=== PATIENT | male | born 1950 | race American Indian/Alaskan Native ===

== ENCOUNTER 2019-05-21 10:02 | Day surgery (SDC) | payer MEDICARE ==
[~2019-05-21 10:02] MED LIST: NACL 0.9% 1000 ML 1,000 ML IV SCH
--- NOTE | 2019-05-21 11:07 | Anesthesia Day of Surgery ---
Anesthesia Day of Surgery - Day of Surgery Patient Examined: Yes Patient H&P Reviewed: Yes Patient is NPO: Yes
--- NOTE | 2019-05-21 11:12 | Anesthesia Consultation ---
Anesthesia Consult and Med Hx Date of service: 05/21/19 - Airway Anesthetic Teeth Evaluation: Caps ROM Head & Neck: Adequate Mental/Hyoid Distance: Adequate Mallampati Class: Class II Intubation Access Assessment: Good - Pre-Operative Health Status ASA Pre-Surgery Classification: ASA3 Proposed Anesthetic Plan: MAC - Cardiovascular System Hx Hypertension: Yes - Central Nervous System CVA: Yes (Aphasic, wheelchair bound, and R hemiplegia) - Gastrointestinal Hx Ulcer: Yes (PUD)
[2019-05-21] MEDS ORDERED: SUBLIMAZE ONE (11:40)
[2019-05-21] MEDS ORDERED: DIPRIVAN 10 MG/ML IV ONE (11:40)
[2019-05-21] MEDS ORDERED: WATER FOR IRRIG STERILE IR ONE (11:41)
--- NOTE | 2019-05-21 12:14 | Procedure Note ---
Date of procedure: 05/21/19 Pre-op diagnosis: Abdominal Pain/H/O Peptic Ulcer Disease/Nausea and Vomiting Post-op diagnosis: other (No Peptic Ulcer Disease now/ Mild to Moderate Erosive Esophagitis/Gastritis/Gastric Erosion/Duodenitis) Procedure: EGD with Biopsy Anesthesia: [facility] Surgeon: LUIS A GARCIA Estimated blood loss: minimal Pathology: list Specimen disposition: to lab Condition: stable Disposition: same day (Treat with PPI, and prn Zofran and avoid aspirin NSAID for 4 days; otherwise resume home medication. Follow up in 1 to 2 weeks ([phone]).)
--- NOTE | 2019-05-21 12:27 | Post Anesthesia Evaluation ---
- Post Anesthesia Evaluation Patient Participated: Yes Airway Patent: Yes Stable Respiratory Function: Yes Nausea/Vomiting: No Temp > 96.8F: Yes Pain Manageable: Yes Adequeate Hydration: Yes Anesthesia Complications: No Block Receding Appropriately: Not Applicable Patient on Ventilator: No Other Comments: h/O stroke. Aphasic. Return to baseline status
[2019-05-21 13:53] VITALS: BP 117/79
--- NOTE | 2019-05-21 17:44 | Operative Report ---
PROCEDURE: EGD with biopsy. INDICATIONS: A 69-year-old -[place] gentleman who has had a CVA and has a prior history of peptic ulcer disease. Lately, he has been having some abdominal pain with nausea and vomiting. EGD was done to assess for the problem. DESCRIPTION OF PROCEDURE: The procedure was done after getting informed consent with MAC anesthesia. Instrument was passed through the hypopharynx into the esophagus, which showed [id number] erosive esophagitis. Biopsy was done from the distal esophagus. The stomach showed antral erosion and gastritis, but no ulcers were noted either in the straight or the retroverted view. The pylorus is patent. The duodenum and the bulb showed some duodenitis. Again, there was no evidence of any duodenal ulcer and second portion appeared normal. Additional biopsy was done from the gastric antrum, gastric body and angular incisura to rule out for H. pylori and atrophic gastritis. There was minimal bleeding associated with the procedure. No complications associated with the procedure. ASSESSMENT: Abdominal pain; history of peptic ulcer disease, none now; nausea; vomiting; [id number] distal erosive esophagitis; gastritis; gastric erosion; duodenitis. PLAN: To treat the patient with PPI, have the patient avoid aspirin and aspirin-related products for the next few days. Also, treat the patient with Zofran on a p.r.n. basis for nausea, vomiting and have the patient follow up in the office in 1-2 weeks' time. If the patient is positive for H. pylori, the patient will be treated for that. Procedure was done in the GI lab with assistance of the GI lab team which included miles Bradshaw, including MIGUE Hayward with assistance of Anesthesia. JOB# [id number] SAPPHIRE/HERB LONGO
== END 2019-05-21 10:03 | disposition home or self-care (01) ==
LOC: GIO 10:02
DX: R11.2 Nausea with vomiting, unspecified (principal); R10.9 Unspecified abdominal pain; K20.9 Esophagitis, unspecified; K29.70 Gastritis, unspecified, without bleeding; I10 Essential (primary) hypertension; K29.80 Duodenitis without bleeding; K27.9 Peptic ulcer, site unspecified, unspecified as acute or chronic, without hemorrhage or perforation; Z88.5 Allergy status to narcotic agent; Z79.899 Other long term (current) drug therapy; Z86.73 Personal history of transient ischemic attack (TIA), and cerebral infarction without residual deficits
CPT/HCPCS: 43239; 88305; 88342; J2704; J3010; J7030